=== PATIENT | female | born 1945 | race Caucasian/White ===

== ENCOUNTER → 2019-09-05 | Outpatient (CLI) | payer MEDICARE, OTHER ==
--- NOTE | 2019-09-05 16:17 | REP ---
LEFT ANKLE, FIVE VIEWS: Five views of the left ankle performed. I see no acute fracture or dislocation. There is moderate diffuse soft tissue swelling. The ankle mortise appears anatomic. The medial malleolus as well as the posterior calcaneus. Os trigonum is noted. IMPRESSION: Mild degenerative changes. Soft tissue swelling. No acute findings. Electronically Signed by Phil Carrion MD 09/06/2019 11:22 P
== END ==
LOC: M LRY 12:24
PROVIDERS: ATTEND Nurse Practitioner Family
DX: M25.472 Effusion, left ankle (principal); M25.572 Pain in left ankle and joints of left foot